=== PATIENT | female | born 1990 | race Caucasian/White ===

== ENCOUNTER 2016-03-14 03:49 | Emergency (ER) | payer SELFPAY ==
[2016-03-14] MEDS ORDERED: METHYLPRED SOD SUCC 125 MG/2 ML VIAL ONE (04:27)
[2016-03-14] MEDS ORDERED: ONDANSETRON 4 MG VIAL ONE (04:27)
== END 2016-03-14 05:43 | disposition home or self-care (01) ==
LOC: ER 03:49
CPT/HCPCS: 36415; 71010; 80053; 85025; 87804; 87880; 96374; 96375